=== PATIENT | female | born 1965 | race Caucasian/White ===

== ENCOUNTER 2022-10-02 13:10 | Outpatient (RCR) | payer BC, SELFPAY ==
[2022-10-02 13:54] LABS: Basophils Absolute Auto 0.02 K/uL (0.00-0.30); Basophils Percent Auto 0.4 % (0.0-3.0); Eosinophils Absolute Auto 0.04 K/uL (0.00-0.50); Eosinophils Percent Auto 0.9 % (0.0-7.0); Hematocrit 41.3 % (33.0-51.0); Hemoglobin* 13.5 gm/dL (12.0-16.0); Lymphocytes Absolute Auto 1.04 K/uL (0.90-2.90); Lymphocytes Percent Auto 22.2 % (20-44); Mean Corpuscular HGB Conc 33 gm/dL (32-36); Mean Corpuscular Hemoglobin 29 pg (26-34); Mean Corpuscular Volume 88 fL (80-100); Monocytes Percent Auto 7.3 % (0.0-11.0); Neutrophils Absolute Auto 3.24 K/uL (1.7-7.0); Neutrophils Percent Auto 69.2 % (42.0-72.0); Platelet Count* 191 K/uL (140-440); Red Blood Count 4.72 m/uL (4.00-5.20); White Blood Count* 4.68 K/uL (4.50-11.00)
[2022-10-02 13:56] LABS: Slide Review Reflex No
[2022-10-02 13:59] LABS: Aspartate Amino Transferase* 25 U/L (12-35)
[2022-10-05 09:15] LABS: Cholesterol* 110 mg/dL (90-199); HDL Cholesterol* 59 mg/dL (>=50); LDL Cholesterol Calculated 42 mg/dL (<100); Triglycerides* 43 mg/dL (40-149)
== END 2023-09-18 14:34 | disposition home or self-care (01) ==
LOC: LAB 13:10
DX: M33.10 Other dermatomyositis, organ involvement unspecified (principal)
CPT/HCPCS: 36415; 80061; 84450; 85025

== ENCOUNTER 2023-07-30 13:54 | Outpatient (REF) | payer BC, SELFPAY ==
[2023-07-30 14:32] LABS: Basophils Percent Auto 0.4 % (0.0-3.0); Eosinophils Percent Auto 2.2 % (0.0-7.0); Hematocrit 45.3 % (33.0-51.0); Hemoglobin* 14.4 gm/dL (12.0-16.0); Immature Granulocytes Pct Auto 0.2 %; Lymphocytes Percent Auto 15.1 % (20-44); Mean Corpuscular HGB Conc 32 gm/dL (32-36); Mean Corpuscular Hemoglobin 28 pg (26-34); Mean Corpuscular Volume 88 fL (80-100); Monocytes Percent Auto 6.7 % (0.0-11.0); Neutrophils Percent Auto 75.4 % (42.0-72.0); Platelet Count* 200 K/uL (140-440); RDW Coefficient of Variation % 13.9 % (11.5-15.5); Red Blood Count 5.13 m/uL (4.00-5.20); White Blood Count* 4.45 K/uL (4.50-11.00)
[2023-07-30 14:34] LABS: Alanine Aminotransferase* 21 U/L (4-35); Aspartate Amino Transferase* 26 U/L (12-35); Cholesterol* 126 mg/dL (90-199); HDL Cholesterol* 52 mg/dL (>=50); LDL Cholesterol Calculated 54 mg/dL (<100); Slide Review Reflex No; Triglycerides* 99 mg/dL (40-149)
[2023-07-30 14:40] LABS: Hemoglobin A1C* 5.6 % (0-5.6)
== END 2023-07-30 13:55 | disposition home or self-care (01) ==
LOC: NPINS 13:54
DX: M33.90 Dermatopolymyositis, unspecified, organ involvement unspecified (principal); R05.9 Cough, unspecified
CPT/HCPCS: 80061; 83036; 84450; 84460; 85025

== ENCOUNTER 2024-05-06 13:39 | Outpatient (REF) | payer BC, SELFPAY ==
--- OUTSIDE RECORDS SUMMARY | 2024-05-06 13:44 | XMS_ITS | Encounter Summary ---
Author Organization [facility] Address [address] [place] [address] Care Team Providers Care Mechanical Engineering Lecturer Name Role Phone Elsewhere, Pcp Primary Care Provider Unavailabl e Encounter Details Date Type Department Care Team (Late st Contact Info) Description 02/06/2024 Clinical Communication Division of Rheumatology in [place], [place] [address] [place] [phone] Eunice Ty M.D. [address] [place] [address] Social History Tobacco Use Types Packs/Day Years Used Date Smoking Tobacco: Never Smokeless Tobacco: Never Alcohol Use Standard Drinks/Week Comments Yes 1 (1 standard drink = 0.6 oz pur e alcohol) [facility] Utilities Answer Date Recorded In the past 12 months has [facility] [employer], gas, oil, or water dateIITians threatened to shut off services in your home? No 01/31/2024 Humiliation, Afraid, Rape, and Kick questionnair e Answer Date Recorded Within the last year, have y ou been afraid of your partner or ex-partner? No 01/30/2022 Within the last year, have y ou been humiliated or emotionally abused in other ways by your partner or ex-partner? No Within the last year, have y ou been kicked, hit, slapped, or otherwise physically hurt by your partner or ex-partner? No 01/30/2022 Within the last year, have y ou been raped or forced to have any kind of sexual activity by your partner or ex-partner? No 01/30/2022 Social Connection and Isolat ion Panel [NHANES] Answer Date Recorded In a typical week, how many times do you talk on the phone with family, friends, or neighbors? More than three times a week 01/30/2022 How often do you get togethe r with friends or relatives? Once a week 01/30/2022 How often do you attend chur or restoration services? More than 4 times per year 01/30/2022 Do you belong to any clubs o r organizations such as rastafarian groups, unions, fraternal or athletic groups, or school groups? No 01/30/2022 How often do you attend meet ings of the clubs or organizations you belong to? Patient declined 01/30/2022 Are you , , di vorced, , never , or living with a partner? 01/30/2022 AUDIT-C Answer Date Recorded Q1: How often do you have a drink containing alc ohol? Monthly or less 01/30/2022 Q2: How many drinks containi ng alcohol do you have on a typical day when you are drinking? 1 or 2 01/30/2022 Q3: How often do you have si x or more drinks on one occasion? Never 01/30/2022 Overall Financial Resource Strain (CARDIA) Answe r Date Recorded How hard is it for you to pa y for the very basics like food, housing, medical care, and heating? Not very hard 01/30/2022 [facility] - Occupational Stress Questionnaire Answer Date Recorded Do you feel stress - tense, restless, nervous, or anxious, or unable to sleep at night because your mind is troubled all the time - these days? To some extent 01/30/2022 Exercise Vital Sign Answer Date Recorde d On average, how many days pe r week do you engage in moderate to strenuous exercise (like a brisk walk)? 1 day 01/31/2024 On average, how many minutes do you engage in exercise at this level? 40 min 01/31/2024 Hunger Vital Sign Answer Date Recorded Within the past 12 months, y ou worried that your food would run out before you got the money to buy more. Never true 01/31/20 24 Within the past 12 months, t he food you bought just didn't last and you didn't have money to get more. Never true 01/31/2024 PRAPARE - Transportation Answer Date Re corded In the past 12 months, has l ack of transportation kept you from medical appointments or from getting medications? No 01/17 In the past 12 months, has l ack of transportation kept you from meetings, work, or from getting things needed for daily living? No 01/31/2024 Nutrition Answer Date Recorded On average, how many serving s of fruits and vegetables do you eat per day (serving size is equal to 1 cup or approximately the size of a tennis ball)? 0-2 01/31/2024 Dental Answer Date Recorded Dental: Regular Dentist Yes 01/31/20 Employment Answer Date Recorded Employment status Retired 01/31/2024 Housing Stability Answer Date Recorded What is your living situation today? I have a [facility] place to live 01/31/2024 Education Answer Date Recorded What is the highest level of school you have completed or the highest degree you have received? 12th grade 05/16/2019 Sex and Gender Information Value Date Recorded Sex Assigned at Female 01/19/2018 1:35 PM CDT Gender Identity Female 01/19/2018 1:35 PM CDT Sexual Orientation Straight 01/19/2018 1: 35 PM CDT documented as of this encounter Plan of Treatment Scheduled Orders Name Type Priority Associated Diagnoses Orde r Schedule CBC with Differential, Blood Lab Routine Dermatomyositis (HCC) Expected: 02/05/2025 (Approximate), Expires: 05/08/2025 Sedimentation Rate Lab Routine Dermatomyositis (HCC) Expected: 02/05/2025 (Approximate), Expires: 05/08/2025 CRP (C-Reactive Protein) Lab Routine Dermatomyositis (HCC) Expected: 02/05/2025 (Approximate), Expires: 05/08/2025 Creatinine with Estimated GFR Lab Routine Dermatomyositis (HCC) Expected: 02/05/2025 (Approximate), Expires: 05/08/2025 AST (Aspartate Aminotransferase) Lab Routine Dermatomyositis (HCC) Expected: 02/05/2025 (Approximate), Expires: 05/08/2025 Aldolase Lab Routine Dermatomyositis (HCC) Expected: 02/05/2025 (Approximate), Expires: 05/08/2025 CK (Creatine Kinase) Lab Routine Dermatomyositis (HCC) Expected: 02/05/2025 (Approximate), Expires: 05/08/2025 ALT (Alanine Aminotransferase) Lab Routine Dermatomyositis (HCC) Expected: 02/05/2025 (Approximate), Expires: 05/08/2025 documented as of this encounter Visit Diagnoses Diagnosis Dermatomyositis (HCC)- Primary documented in this encounter Care Teams Mechanical Engineering Lecturer Relationship Specialty Start Date End Date Elsewhere, Pcp PCP - General Family Medicine 03/14/18 documented as of this encounter
--- OUTSIDE RECORDS SUMMARY | 2024-05-06 13:44 | XMS_ITS | Encounter Summary ---
Author Organization [facility] Address [address] [place] [id number] Care Team Providers Care Forwarder Operator Name Role Phone Elsewhere, Pcp Primary Care Provider Unavailabl e Reason for Visit * Reason Onset Date Comments Lab Monitoring 02/21/2024 Collected 02/18/24 Encounter Details Date Type Department Care Team (Latest Contact Info) Description 02/21/2024 Clinical Communication Division of Rheumatology in [place], [place] [address] [place] [phone] Eunice Ty M.D. [address] [place] [phone] Lab Monitoring (Collected 02/18/24) Social History Tobacco Use Types Packs/Day Years Used Date Smoking Tobacco: Never Smokeless Tobacco: Never Alcohol Use Standard Drinks/Week Comments Yes 1 (1 standard drink = 0.6 oz pur e alcohol) [facility] Utilities Answer Date Recorded In the past 12 months has e [employer], gas, oil, or water [employer] threatened to shut off services in your [...] How often do you attend chur or adventism services? More than 4 times per year 01/30/2022 Do you belong to any clubs o r organizations such as denominational groups, unions, fraternal or athletic groups, or [...] care, and heating? Not very hard 01/30/2022 [facility] - Occupational Stress Questionnaire Answer Date [...] money to buy more. Never true 01/31/20 Within the past 12 months, t he [...] your living situation today? [facility] 01/31/2024 Education Answer Date Recorded What is the highest level of school you have completed or the highest degree you have received? 12th grade 05/16/2019 Sex and Gender Information Value Date Recorded Sex Assigned at Female 01/19/2018 1:35 PM CDT Gender Identity Female 01/19/2018 1:35 PM CDT Sexual Orientation Straight 01/19/2018 1: 35 PM CDT documented as of this encounter Miscellaneous Notes * Telephone Encounter - Teddy Abad RConcettaN. - 02/26/2024 4:46 PM CDT ASSESSMENT Rheumatology monitoring labs completed at an external lab on 02/18/24 were reviewed per Rheumatology division parameters. Labs reviewed: creatinine, CK, Aldolase Labs outside parameters: CK 221 External labs were entered into Labs Tab and sent for scanning. Labs Tab of Chart Review PLAN Provider notified of lab(s) outside of parameters, see 02/26/24 message for follow up. documented in this encounter Plan of Treatment Not on file documented as of this encounter Procedures Procedure Name Priority Date/Time Associated Diagnosis Comments ALDOLASE, S Routine 02/18/2024 CREATININE WITH EGFR, S/P Routine 02/18/2024 CREATINE KINASE (CK), S Routine 02/18/2024 documented in this encounter Results * Aldolase (02/18/2024) EXT Aldolase, S 5.0 7.7 [facility] Blood (Blood, Venous) Eunice Ty M.D. LAB BLOOD NON ADD-ON Performing Organization Address [facility] Co de Phone Number [facility] [address] [place] [address], [facility] [phone] * Creatinine with Estimated GFR (02/18/2024) EXT Estimated GFR (eGFR) 72 60 [facility] EXT Creatinine 0.92 0.4 - 1.0 mg/dL [facility] Blood (Blood, Venous) Eunice Ty M.D. LAB BLOOD ADD-ON Performing Organization Address [facility] de Phone Number [facility] [address] [place] [address], [facility] [phone] * (ABNORMAL) CK (Creatine Kinase) (02/18/2024) EXT Creatine Kinase 221(A) 33 - 157 [facility] Blood (Blood, Venous) Eunice Ty M.D. LAB BLOOD ADD-ON Performing Organization Address [facility] Co de Phone Number [facility] [address] [place] [address] [phone] documented in this encounter Visit Diagnoses Not on filedocumented in this encounter Care Teams Forwarder Operator Relationship Specialty Start Date End Date Elsewhere, Pcp PCP - General Family Medicine 03/14/18 documented as of this encounter
--- OUTSIDE RECORDS SUMMARY | 2024-05-06 13:44 | XMS_ITS ---
Author Organization [facility] Address [address] [place] [address] Care Team Providers Care Contracting Executive Name Role Phone Unavailable Unavailable Unavailable Surgery Details Not on file Complications Check Surgery Details section. Procedure Estimated Blood Loss Check Surgery Details section. Procedure Findings Check Surgery Details section. Procedure Specimens Taken Check Surgery Details section.
--- OUTSIDE RECORDS SUMMARY | 2024-05-06 13:44 | XMS_ITS | Encounter Summary ---
Author Organization [facility] Address [address] [place] [address] Care Team Providers Care Post Adoption Coordinator Name Role Phone Elsewhere, Pcp Primary Care Provider Unavailabl e Reason for Visit * Reason Onset Date Comments RX APPROVAL 02/13/2024 XELJANZ TAB 5MG APPROVAL Encounter Details Date Type Department Care Team (Latest Contact Info) Description 02/13/2024 Clinical Communication Pharmacy Prior [place] [phone] Michelle Carballo RX APPROVAL (XELJANZ TAB 5MG APPROVAL) Social History Tobacco Use Types Packs/Day Years Used Date Smoking Tobacco: Never Smokeless Tobacco: Never Alcohol Use Standard Drinks/Week Comments Yes 1 (1 standard drink = 0.6 oz pur e alcohol) [facility] Utilities Answer Date Recorded In the past [address] [facility] [employer], gas, oil, or water [employer] threatened to shut off services in your [...] How often do you attend chur or pentecostalism services? More than 4 times per year 01/30/2022 Do you belong to any clubs o r organizations such as moravian groups, unions, fraternal or athletic groups, or [...] care, and heating? Not very hard 01/30/2022 [facility] ional Health - Occupational Stress [...] your living situation today? I have a [facility] place to live 01/31/2024 Education Answer Date [...] encounter Miscellaneous Notes * Telephone Encounter - Michelle Carballo - 02/13/2024 8:10 AM EDT Pharmaceutical prior authorization has been approved for XELJANZ TAB 5MG APPROVAL If you have any follow-up questions, please send an [employer] message to P [facility]. documented in this encounter Plan of Treatment Not on file documented as of this encounter Visit Diagnoses Not on filedocumented in this encounter Care Teams Post Adoption Coordinator Relationship Specialty Start Date End Date Elsewhere, Pcp PCP - General Family Medicine 03/14/18 documented as of this encounter
--- OUTSIDE RECORDS SUMMARY | 2024-05-06 13:44 | XMS_ITS | Referral Summary ---
Author Organization [facility] Address [address] [place] [address]. [place] [address] Care Team Providers Care Furniture Detailer Name Role Phone No Ref-Primary, Physician Primary Care Provider Allergies Active Allergy Reactions Criticality Noted Date Comments Sumatriptan Unknown,Shortness Of Breath High 11/30/2011 Difficult breathing, chest tightness. Medications Medication Sig Dispensed Refills Start Date End Date Status ibuprofen (ADVIL/MOTRIN) 800 MG tablet as needed. 05/21/2019 Active atorvastatin (LIPITOR) 20 MG tablet 08/15/2020 Active amLODIPine (NORVASC) 2.5 MG tablet 07/23/2020 Active tofacitinib (XELJANZ) 5 MG tablet Take 5 mg by mouth 2 times daily Active bisacodyl (DULCOLAX) 5 MG EC tabletIndications:S pecial screening for malignant neoplasms, colon Take 2 tablets at 3 pm the day before your procedure. If your procedure is before 11 am, take 2 additional tablets at 8 pm. If your procedure is after 11 am, take 2 additional tablets at 6 am. For additional instructions refer to your colonoscopy prep instructions. 4 tablet 05/15/2022 Active polyethylene glycol (GOLYTELY) 236 g suspensionIndicatio ns:Special screening for malignant neoplasms, colon The night before the exam at 6 pm drink an 8-ounce glass every 15 minutes until the jug is half empty. If you arrive before 11 AM: Drink the other half of the Golytely jug at 11 PM night before procedure. If you arrive after 11 AM: Drink the other half of the Golytely jug at 6 AM day of procedure. For additional instructions refer to your colonoscopy prep instructions. 4000 mL 05/15/2022 Active metFORMIN (GLUCOPHAGE) 500 MG tabletIndications:T ype 2 Diabetes Mellitus Take 1,000 mg by mouth 2 times daily (with meals) Active losartan (COZAAR) 100 MG tablet Take 100 mg by mouth daily Active predniSONE (DELTASONE) 1 MG tablet Take 1 mg by mouth daily Taper dose: 1mg per day until 06/04/22 Active progesterone (PROMETRIUM) 200 MG capsule Take 200 mg by mouth daily Active estradiol (VIVELLE-DOT) 0.05 MG/24HR bi-weekly patch Place 1 patch onto the skin twice a week Active Active Problems Problem Noted Date Diagnosed Date Chronic pain of both shoulders 01/16/2023 Ureteral stone 09/05/2020 Overview: Added automatically from request for surgery [id number] Immunizations Name Administration Dates Next Due Zoster recombinant adjuvanted (SHINGRIX) 020,04/06/2020 Social History Tobacco Use Types Packs/Day Years Used Date Smoking Tobacco: Never Smokeless Tobacco: Never Tobacco Cessation:Counseling Given: Not Answered Alcohol Use Standard Drinks/Week Comments Yes 0 (1 standard drink = 0.6 oz pur e alcohol) once a month PHQ-2 Answer Date Recorded PHQ-2 Score 2 08/30/2020 Adolescent Education Answer Date Record ed Getting School Help Needed Not on file 05/11 Sex and Gender Information Value Date Recorded Sex Assigned at Not on file Gender Identity Not on file Sexual Orientation Not on file Last Filed Vital Signs Vital Sign Reading Time Taken Comments Blood Pressure 130/80 11/25/2023 12:19 AM CDT Pulse 75 11/25/2023 12:19 AM CDT Temperature 36.9 ??C (98.5 ??F) 11/24/2023 10:13 PM C DT Respiratory Rate 18 11/24/2023 11:32 PM CDT Oxygen Saturation 95% 11/25/2023 12:20 AM CDT Inhaled Oxygen Concentration - - Weight 77.1 kg (170 lb) 11/24/2023 10:13 PM CDT Height 162.6 cm (5' 4) 11/24/2023 10:13 PM CDT Body Mass Index 29.18 11/24/2023 10:13 PM CDT Plan of Treatment Not on file Procedures Procedure Name Priority Date/Time Associated Diagnosis Comments COMPREHENSIVE METABOLIC PANEL STAT 11/24/2023 10:32 PM CDT COLONOSCOPY Routine 05/31/2022 9:14 AM CDT from Last 3 Months or Most Recently Relevant to Health Maintenance Results * (ABNORMAL) Comprehensive metabolic panel (11/24/2023 10:32 PM CDT) [facility] Signature Sodium 139 135 - 145 mmol/L 11/24/2023 11:06 PM CDT [facility] Comment:Reference intervals for this test were updated on 05/14/2023 to more accurately reflect our healthy population. There may be differences in the flagging of prior results with similar values performed with this method. Interpretation of those prior results can be made in the context of the updated reference intervals. Potassium 3.5 3.4 - 5.3 mmol/L 11/24/2023 11:06 PM CDT [facility] Carbon Dioxide (CO2) 21(L) 22 - 29 mmol/L 11/24/2023 11:06 PM CDT [facility] Anion Gap 16(H) 7 - 15 mmol/L 11/24/2023 11:06 PM CDT [facility] Urea Nitrogen 10.6 6.0 - 20.0 mg/dL 11/24/2023 11:06 PM CDT [facility] Creatinine 0.78 0.51 - 0.95 mg/dL 11/24/2023 11:06 PM CDT [facility] GFR Estimate 88 >60 mL/min/1. 73m2 11/24/2023 11:06 PM CDT [facility] Calcium 9.6 8.6 - 10.0 mg/dL 11/24/2023 11:06 PM CDT [facility] Chloride 102 98 - 107 mmol/L 11/24/2023 11:06 PM CDT [facility] Glucose 164(H) 70 - 99 mg/dL 11/24/2023 11:06 PM CDT [facility] Alkaline Phosphatase 73 40 - 150 U/L 11/24/2023 11:06 PM CDT [facility] Comment:Reference intervals for this test were updated on 07/02/2023 to more accurately reflect our healthy population. There may be differences in the flagging of prior results with similar values performed with this method. Interpretation of those prior results can be made in the context of the updated reference intervals. AST 33 0 - 45 U/L 11/24/2023 11:06 PM CDT [facility] Comment:Reference intervals for this test were updated on 01/28/2023 to more accurately reflect our healthy population. There may be differences in the flagging of prior results with similar values performed with this method. Interpretation of those prior results can be made in the context of the updated reference intervals. ALT 35 0 - 50 U/L 11/24/2023 11:06 PM CDT [facility] Comment:Reference intervals for this test were updated on 01/28/2023 to more accurately reflect our healthy population. There may be differences in the flagging of prior results with similar values performed with this method. Interpretation of those prior results can be made in the context of the updated reference intervals. Protein Total 7.6 6.4 - 8.3 g/dL 11/24/2023 11:06 PM CDT [facility] Albumin 4.7 3.5 - 5.2 g/dL 11/24/2023 11:06 PM CDT [facility] Bilirubin Total 0.4 <=1.2 mg/dL 11/24/2023 11:06 PM CDT [facility] Blood BLOOD SPECIMEN / Unknown Venipuncture / Unknown 11/24/2023 10:32 PM CDT 11/24/2023 10:35 PM CDT Jalen Bernal MD LAB - BLOOD ORD ERABLES LABORATORY [facility] [address] [facility] (1st floor, no room number) [place] [address], [facility] * COLONOSCOPY (05/31/2022 9:14 AM CDT) [facility] Patient Name: Heather Montez ? Procedure Date: 05/31/2022 9:14 AM ? Date of : 1965 ? Admit Type: Outpatient Age: 57 ? Gender: Female Attending MD: PATRICK MASON MD ?? Total Sedation Time: 19_minutes continuous bedside 1:1 Instrument Name: 222 - Adult Colonoscope Procedure: ?Colonoscopy Indications: ?Screening for colorectal malignant neoplasm Providers: ?PATRICK MASON MD (Doctor) Referring MD: ? Yg Rowell (Referring MD) Medicines: ?Midazolam 4 mg IV, Fentanyl 150 micrograms IV Complications: ?No immediate complications. Procedure: ?Pre-Anesthesia Assessment: ?- Prior to the procedure, a History and Physical ?was performed, and patient medications and ?allergies were reviewed. The patient is competent. ?The risks and benefits of the procedure and the ?sedation options and risks were discussed with the ?patient. All questions were answered and informed ?consent was obtained. Patient identification and ?proposed procedure were verified by the physician ?in the procedure room. Mental Status Examination: ?alert and oriented. Airway Examination: normal ?oropharyngeal airway and neck mobility. Respiratory ?Examination: clear to auscultation. CV Examination: ?normal. Prophylactic Antibiotics: The patient does ?not require prophylactic antibiotics. Prior ?Anticoagulants: The patient has taken no ?anticoagulant or antiplatelet agents. After ?reviewing the risks and benefits, the patient was ?deemed in satisfactory condition to undergo the ?procedure. The anesthesia plan was to use moderate ?sedation / analgesia (conscious sedation). ?Immediately prior to administration of medications, ?the patient was re-assessed for adequacy to receive ?sedatives. The heart rate, respiratory rate, oxygen ?saturations, blood pressure, adequacy of pulmonary ?ventilation, and response to care were monitored ?throughout the procedure. The physical status of ?the patient was re-assessed after the procedure. ?After obtaining informed consent, the colonoscope ?was passed under direct vision. Throughout the ?procedure, the patient's blood pressure, pulse, and ?oxygen saturations were monitored continuously. The ?Olympus Adult Colonoscope, Model # CF-JA892S, ?[place] # 222, SN # [id number] was introduced through ?the anus and advanced to the cecum, identified by ?appendiceal orifice and ileocecal valve. The ?colonoscopy was performed without difficulty. The ?patient tolerated the procedure well. The quality ?of the bowel preparation was good. Anatomical ?landmarks were photographed. ? Findings: ? The perianal and digital rectal examinations were normal. ? The entire examined colon appeared normal on direct and retroflexion ? views. ? Impression: ? - The entire examined colon is normal on direct and ?retroflexion views. ?- No specimens collected. Recommendation: ? - Repeat colonoscopy in 10 years for screening ?purposes. ? Procedure Code(s): ? --- Professional --- ? G0121, Colorectal cancer screening; colonoscopy on individual not ? meeting criteria for high risk Diagnosis Code(s): ? --- Professional --- ? Z12.11, Encounter for screening for malignant neoplasm of colon CPT copyright 2020 [employer]. All rights reserved. The codes documented in this report are preliminary and upon gun stock checker review may be revised to meet current compliance requirements. Electronically signed by Patrick Mason MD __ PATRICK MASON MD 05/31/2022 9:55:11 AM I was physically present for the entire viewing portion of the exam. PATRICK MASON MD Number of Addenda: 0 Note Initiated On: 05/31/2022 9:14 AM MRN: ?[id number] Procedure Date: ? 05/31/2022 9:14:51 AM Scope Withdrawal Time: 0 hours 6 minutes 19 seconds Total Procedure Duration: 0 hours 16 minutes 58 seconds Estimated Blood Loss: ? Scope In: 9:30:42 AM Scope Out: 9:47:40 AM RADIOLOGY RESULTS 05/31/2022 9:14 AM CDT Yg Rowell YARD SUPERVISOR [employer] PROCEDURES RADIOLOGY RESULTS from Last 3 Months or Most Recently Relevant to Health Maintenance Care Teams Furniture Detailer Relationship Specialty Start Date End Date No Ref-Primary, Physician PCP - General 05/31/22
--- OUTSIDE RECORDS SUMMARY | 2024-05-06 13:44 | XMS_ITS | Clinical Summary ---
Author Organization [facility] Address [address] [place] [address]. [place] [address] Care Team Providers Care Allergy Specialist Name Role Phone No Ref-Primary, Physician Primary [...] Overview: Added automatically from request for surgery [id number] Immunizations Name Administration Dates Next Due Zoster recombinant adjuvanted (SHINGRIX) 020,04/06/2020 Family History Medical History Relation Comments Colon Cancer No family hx of Relation Status Comments Father Mother Alive Social History Tobacco Use Types Packs/Day Years [...] 11/24/2023 10:13 PM CDT Plan of Treatment Health Maintenance Due Date Last Done Comments CT COLONOGRAPHY 1965 FIT 1965 FLEX SIG 1965 LIPID 1965 sDNA (Cologuard) 1965 Pneumococcal Vaccine: Pediatrics (0 to 5 Years) and At-Risk Patients (6 to 64 Years) (1 of 2 - PCV) 1971 HIV SCREENING 02/24/1980 HEPATITIS C SCREENING 1983 HEPATITIS B IMMUNIZATION (1 of 3 - 19+ 3-dose series) 02/24/1984 DTAP/TDAP/TD IMMUNIZATION (1 - Tdap) 1990 ANNUAL REVIEW OF HM ORDERS 08/16/2021 08/16/2020 YEARLY PREVENTIVE VISIT 04/19/2023 04/19/2022, 04/17 PHQ-2 (once per calendar year) 2023 08/30/2020, 08/16/2020 MAMMO SCREENING 02/01/2024 01/31/2022, 01/17, 01/31/2022, Additional history exists PAP 04/17/2024 04/17/2021 COVID-19 Vaccine ( season) 2024 08/03/2021, 12/08/2020, 11/17/2020 INFLUENZA VACCINE (#1) 2024 0 (Declined), 06/04/2012, 06/04/2012, Additional history exists ADVANCE CARE PLANNING 08/16/2025 08/16/2020 (Decline d) GLUCOSE 11/23/2026 11/24/2023, 05/19, 08/16/2020, Additional history exists COLONOSCOPY 05/31/2032 05/31/2022, 05/31/2022 COLORECTAL CANCER SCREENING 05/31/2032 ZOSTER IMMUNIZATION Completed 06/06/2020, 0 HPV IMMUNIZATION Aged Out No longer e ligible based on patient's age to complete this topic MENINGITIS IMMUNIZATION Aged Out No l onger eligible based on patient's age to complete this topic RSV MONOCLONAL ANTIBODY Aged Out No l onger eligible based on patient's age to complete this topic Procedures Procedure Name Priority Date/Time Associated Diagnosis Comments COMPREHENSIVE METABOLIC PANEL STAT 11/24/2023 10:32 PM CDT COLONOSCOPY Routine 05/31/2022 9:14 AM CDT from Last 3 Months or Most Recently Relevant to Health Maintenance Results * (ABNORMAL) Comprehensive metabolic panel (11/24/2023 10:32 PM CDT) Sodium 139 135 - 145 mmol/L 11/24/2023 [...] Bernal MD LAB - BLOOD ORD ERABLES [facility] Acute Care Lab [address] [facility] (1st floor, no room number) [place] [address], [facility] * COLONOSCOPY (05/31/2022 9:14 AM CDT) [facility] COLONOSCOPY [facility] Patient Name: Heather Montez ? Procedure Date: [...] continuously. The ?Olympus Adult Colonoscope, Model # CF-WP542V, ?Endora # 222, SN # [id number] was introduced through ?the anus and advanced [...] malignant neoplasm of colon CPT copyright 2020 [employer]. All rights reserved. The codes documented in this report are preliminary and upon crop and soil scientist review may be revised to meet current compliance requirements. Electronically signed by Patrick Mason MD __ PATRICK MASON MD 05/31/2022 9:55:11 AM I was physically present for the entire viewing portion of the exam. PATRICK MASON MD Number of Addenda: 0 Note Initiated On: 05/31/2022 9:14 AM MRN: ?[id number] Procedure Date: ? 05/31/2022 9:14:51 AM Scope Withdrawal Time: 0 hours 6 minutes 19 seconds Total Procedure Duration: 0 hours 16 minutes 58 seconds Estimated Blood Loss: ? Scope In: 9:30:42 AM Scope Out: 9:47:40 AM RADIOLOGY RESULTS 05/31/2022 9:14 AM CDT [facility] PROCEDURES RADIOLOGY RESULTS from Last 3 Months or Most Recently Relevant to Health Maintenance Care Teams Allergy Specialist Relationship Specialty Start Date End Date No Ref-Primary, Physician PCP - General 05/31/22
--- OUTSIDE RECORDS SUMMARY | 2024-05-06 13:44 | XMS_ITS | Referral Summary ---
Author Organization [facility] Address [address] [place] [address] Care Team Providers Care Antique Finisher Name Role Phone Elsewhere, Pcp Primary Care Provider Unavailabl e Source Comments Patient records contain information from all sites at [facility]. For routine questions regarding patient records, call [phone] during business hours, M-F 8:00 AM - 5:00 PM Central Time. Record requests for emergency care only can be directed to [phone] at any time.[facility] Encounters Date Type Department Care Team Description 04/29/2024 Refill Division of Rheumatology in [place], [place] [address] [place] [phone] Eunice Ty M.D. Med Refill 02/27/2024 Clinical Communication Division of Rheumatology in [place], [place] [address] [place] [phone] Eunice Ty M.D. 02/21/2024 Clinical Communication Division of Rheumatology in [place], [place] [address] [place] [phone] Eunice Ty M.D. Lab Monitoring (Collected 02/18/24) 02/13/2024 Clinical Communication Pharmacy Prior Auth [place] [phone] Michelle Carballo RX APPROVAL (XELJANZ TAB 5MG APPROVAL) 02/06/2024 Clinical Communication Division of Rheumatology in [place], [place] [address] [place] [phone] Eunice Ty M.D. 02/06/2024 10:25 AM CDT - 02/06/2024 12:44 PM CDT Hospital Encounter Department of Laboratory Medicine and Pathology, [facility], in [place], [place] [address] [place] [address] Eunice Ty M.D. Sore Throat; Dermatomyositis (HCC) Discharge Disposition: Home or Self Care 02/06/2024 12:45 PM CDT - 02/06/2024 11:59 PM CDT Hospital Encounter Department of Radiology in [place], [place] [address] [place] [address] Eunice Ty M.D. Dermatomyositis (HCC) Discharge Disposition: Home or Self Care 02/06/2024 12:30 PM CDT Office Visit Division of Rheumatology in [place], [place] [address] [place] [address] Eunice Ty M.D. Dermatomyositis (HCC) (Primary Dx) 02/04/2024 Clinical Communication Division of Rheumatology in [place], [place] [address] [place] [address] Eunice Ty M.D. from Last 3 Months Allergies Active Allergy Reactions Criticality Noted Date Comments Sumatriptan Other (see comments) 11/30/2011 Difficult breathing, chest tightness. Medications Medication Sig Dispensed Refills Start Date End Date Status losartan-hydroCH LOROthiazide (HYZAAR) 100-12.5 mg per tablet daily. 3 11/14/2018 Active norethindrone (AYGESTIN) 5 mg tablet TK 1 T PO D 3 03/19/2019 Active atorvastatin (LIPITOR) 20 mg tablet daily. 12/20/2020 Active ibuprofen 800 mg tablet TAKE 1 TABLET BY MOUTH EVERY 8 HOURS WITH FOOD OR MILK NEEDED 01/14/2024 Active progesterone (Prometrium) 200 mg capsule Take 200 mg by mouth at bedtime. Active Mounjaro 15 mg/0.5 mL pen injector injection See Instructions, ADMINISTER 15 MG UNDER THE SKIN EVERY WEEK. ROTATE INJECTION SITES., # 2 mL, 10 Refill(s), Pharmacy: [id number], will warp picker soon., ADMINISTER 15 MG UNDER THE SKIN EVERY WEEK. ROTATE INJECTION SITES., 164, cm, 02/06... 08/21/2023 Active amLODIPine (Norvasc) 5 mg tablet Take 5 mg by mouth daily. Active estradioL (Vivelle-Dot) 0.05 mg/[address] 1 patch on the skin 2 (two) times a day. Active Xeljanz 5 mg tabletIndication s:Dermatomyositi s (HCC) TAKE 1 TABLET BY MOUTH TWICE DAILY 60 tablet 05/01/2024 Active tofacitinib (Xeljanz) 5 mg tabletIndication s:Dermatomyositi s (HCC) TAKE 1 TABLET BY MOUTH TWICE DAILY 180 tablet 02/04/2024 4 Discontinued Active Problems Problem Noted Date Diagnosed Date Dermatomyositis 05/04/2005 Tendinitis Achilles Left Tendinitis Achilles Right Immunizations Name Administration Dates Next Due Influenza, Seasonal, Injectable 06/04/2012,06/27,05/30/2011 RZV (SHINGRIX) 06/06/2020,04/06/2020 Social History Tobacco Use Types Packs/Day Years Used Date Smoking Tobacco: Never Smokeless Tobacco: Never Tobacco Cessation:Counseling Given: Not Answered Alcohol Use Standard Drinks/Week Comments Yes 1 (1 standard drink = 0.6 oz pur e alcohol) [facility] Utilities Answer Date Recorded In the past 12 months has e [employer], gas, oil, or water [employer] threatened to shut off services in your [...] How often do you attend chur or judaism services? More than 4 times per year 01/30/2022 Do you belong to any clubs o r organizations such as oriental orthodox groups, unions, fraternal or athletic groups, or [...] care, and heating? Not very hard 01/30/2022 [facility] of Occupat ional Health - Occupational Stress [...] your living situation today? I have a [facility] place to live 01/31/2024 Education Answer Date Recorded What is the highest level of school you have completed or the highest degree you have received? 12th grade 05/16/2019 Sex and Gender Information Value Date Recorded Sex Assigned at Female 01/19/2018 1:35 PM CDT Gender Identity Female 01/19/2018 1:35 PM CDT Sexual Orientation Straight 01/19/2018 1: 35 PM CDT Last Filed Vital Signs Vital Sign Reading Time Taken Comments Blood Pressure 143/87 02/06/2024 12:06 PM CDT Pulse 81 02/06/2024 12:06 PM CDT Temperature 36.9 ??C (98.4 ??F) 02/06/2024 12:06 PM C DT Respiratory Rate - - Oxygen Saturation - - Inhaled Oxygen Concentration - - Weight 81.4 kg (179 lb 5.5 oz) 02/06/2024 12:06 PM CDT Height 162.6 cm (5' 4) 02/06/2024 12:06 PM CDT Body Mass Index 30.78 02/06/2024 12:06 PM CDT Plan of Treatment Not on file Procedures Procedure Name Priority Date/Time Associated Diagnosis Comments ALDOLASE, S Routine 02/18/2024 CREATININE WITH EGFR, S/P Routine 02/18/2024 CREATINE KINASE (CK), S Routine 02/18/2024 BI BREAST SCREENING BILATERAL WITH TOMOSYNTHESIS RAD - Routine (most inpatients and all outpatients) 02/06/2024 1:21 PM CDT Dermatomyositis (HCC) QUANTITATIVE M-PROTEIN STUDY, S Routine 02/06/2024 10:44 AM CDT ALDOLASE, S Routine 02/06/2024 10:44 AM CDT Dermatomyositis (HCC) CREATININE WITH EGFR, S/P Routine 02/06/2024 10:44 AM CDT Dermatomyositis (HCC) CREATINE KINASE (CK), S Routine 02/06/2024 10:44 AM CDT Dermatomyositis (HCC) C-REACTIVE PROTEIN (CRP), S/P Routine 02/06/2024 10:44 AM CDT Dermatomyositis (HCC) SEDIMENTATION RATE, B Routine 02/06/2024 10:44 AM CDT Dermatomyositis (HCC) CBC WITH DIFFERENTIAL, B Routine 02/06/2024 10:44 AM CDT Dermatomyositis (HCC) ASPARTATE AMINOTRANSFERASE (AST), S/P Routine 02/06/2024 10:44 AM CDT Dermatomyositis (HCC) ALANINE AMINOTRANSFERASE (ALT), S/P Routine 02/06/2024 10:44 AM CDT Dermatomyositis (HCC) LIPID PANEL, NON-FASTING, S Routine 07/30/2023 POTASSIUM, S/P Routine 06/27/2020 HIV-1/-2 AG AND AB SCREEN, PLASMA Routine 12/19/2018 10:00 AM CDT Dermatomyositis (HCC) from Last 3 Months or Most Recently Relevant to Health Maintenance Results * Aldolase (02/18/2024) Only the most recent of2 resultswithin the time period is included. EXT Aldolase, S 5.0 7.7 [facility] Blood (Blood, Venous) Eunice Ty M.D. LAB BLOOD NON ADD-ON Performing Organization Address [facility] de Phone Number [facility] [address] [place] [address], [facility] [phone] * Creatinine with Estimated GFR (02/18/2024) Only the most recent of2 resultswithin the time period is included. EXT Estimated GFR (eGFR) 72 60 [facility] EXT Creatinine 0.92 0.4 - 1.0 mg/dL [facility] Blood (Blood, Venous) Eunice Ty M.D. LAB BLOOD ADD-ON Performing Organization Address [facility] de Phone Number [facility] [address] [place] [address], [facility] [phone] * (ABNORMAL) CK (Creatine Kinase) (02/18/2024) Only the most recent of2 resultswithin the time period is included. EXT Creatine Kinase 221(A) 33 - 157 [facility] Blood (Blood, Venous) Eunice Ty M.D. LAB BLOOD ADD-ON Performing Organization Address [facility] de Phone Number [facility] [address] [place] [address], [facility] [phone] * BI Breast Screening Bilateral with Tomosynthesis (02/06/2024 1:21 PM CDT) Anatomical Region Laterality Modality Breast, Breast Imaging RST L OS, Breast Imaging ARZ LOS, Breast Imaging FLA LOS Bilateral Mammography Impressions 02/06/2024 1:47 PM CDT Negative. RECOMMENDATION: ??Annual Screening Mammogram ASSESSMENT: ??BI-RADS: 1: Negative. Narrative 02/06/2024 1:47 PM CDT EXAM: ??BI BREAST SCREENING BILATERAL WITH TOMOSYNTHESIS Current study was evaluated with a Computer Aided Detection (CAD) system. INDICATION: ??Screening mammogram. COMPARISON: ??Prior exam(s) were available and reviewed for comparison. DENSITY: ??b. There are scattered areas of fibroglandular density. FINDINGS: ??No findings of malignancy. ??No significant change since prior exam. Procedure Note Pat Patino M.D. - 02/06/2024 EXAM: BI BREAST SCREENING BILATERAL WITH TOMOSYNTHESIS Current study was evaluated with a Computer Aided Detection (CAD) system. INDICATION: Screening mammogram. COMPARISON: Prior exam(s) were available and reviewed for comparison. DENSITY: b. There are scattered areas of fibroglandular density. FINDINGS: No findings of malignancy. No significant change since priorexam. IMPRESSION: Negative. RECOMMENDATION: Annual Screening Mammogram ASSESSMENT: BI-RADS: 1: Negative. Eunice Ty M.D. [facility] BI PROCEDURES * Quantitative M-protein Study (02/06/2024 10:44 AM CDT) Immunoglobulin A (IgA), S 206 61 - 356 mg/dL 02/06/2024 4:42 PM CDT [facility] Immunoglobulin M (IgM), S 38 37 - 286 mg/dL 02/06/2024 4:42 PM CDT [facility] Immunoglobulin G (IgG), S 1120 767 - 1590 mg/dL 02/06/2024 4:41 PM CDT [facility] Therapeutic Antibody Administered? Unspecified 02/06/2024 2:55 PM CDT [facility] Flag, M-protein Isotype Negative Negative 02/10/2024 8:18 AM CDT [facility] QMPTS Interpretation No monoclonal protein detected. 02/10/2024 8:18 AM CDT [facility] Comment: ----ADDITIONAL INFORMATION---- The submitted sample was assayed by five separate immunopurifications for IgG, IgA, IgM, kappa and lambda. ??The result reflects the findings of either no monoclonal protein detected or those monoclonal immunoglobulins that were detected. This test was developed and its performance characteristics determined by [facility] in a manner consistent with CLIA requirements. This test has not been cleared or approved by the U.S. Food and Drug Administration. Blood 02/06/2024 10:4 4 AM CDT 02/06/2024 2:55 PM CDT Narrative [facility] - 02/10/2024 8:18 AM CDT Specimen Information: Specimen ID: [id number] Specimen Type: Blood Specimen Collection Start Date: 02/06/2024 10:44 AM Specimen Received Date: 02/06/2024 ??2:55 PM Specimen ID: [id number] Specimen Type: Blood Specimen Collection Start Date: 02/06/2024 10:44 AM Specimen Received Date: 02/06/2024 ??3:02 PM Eunice Ty M.D. LAB BLOOD ADD-ON Performing Organization Address City/[facility]/ZIP Co de Phone Number [facility] [address] [place] [address] [facility] [address] [place] [address] [place] [facility] [place] [address] * Sedimentation Rate (02/06/2024 10:44 AM CDT) Sedimentation Rate, B 2 2 - 22 mm/h 02/06/2024 12:08 PM CDT [facility] Blood (Blood, Venous) 02/06/2024 10:44 AM CDT 02/06/2024 11:08 AM CDT Eunice Ty M.D. LAB BLOOD ADD-ON [facility] [address] [place] [address], [place] DTL [facility] [address] [place] [address] * CBC with Differential, Blood (02/06/2024 10:44 AM CDT) Hemoglobin 13.9 11.6 - 15.0 g/dL 02/06/2024 11:20 AM CDT DTL Hematocrit 42.0 35.5 - 44.9 % 02/06/2024 11:20 AM CDT DTL Erythrocytes 4.84 3.92 - 5.13 x10(12)/L 02/06/2024 11:20 AM CDT DTL MCV 86.8 78.2 - 97.9 fL 02/06/2024 11:20 AM CDT DTL RBC Distrib Width 14.6 12.2 - 16.1 % 02/06/2024 11:20 AM CDT DTL Platelet Count 228 157 - 371 x10(9)/L 02/06/2024 11:20 AM CDT DTL Leukocytes 5.1 3.4 - 9.6 x10(9)/L 02/06/2024 11:20 AM CDT DTL Neutrophils 3.74 1.56 - 6.45 x10(9)/L 02/06/2024 11:20 AM CDT PM Lymphocytes 0.98 0.95 - 3.07 x10(9)/L 02/06/2024 11:20 AM CDT DTL Monocytes 0.33 0.26 - 0.81 x10(9)/L 02/06/2024 11:20 AM CDT DTL Eosinophils 0.05 0.03 - 0.48 x10(9)/L 02/06/2024 11:20 AM CDT DTL Basophils <0.03 0.01 - 0.08 x10(9)/L 02/06/2024 11:20 AM CDT DTL Blood (Blood, Venous) 02/06/2024 10:44 AM CDT 02/06/2024 11:08 AM CDT Eunice Ty M.D. LAB BLOOD ADD-ON [facility] [address] [place] [address], [facility] [address] [place] [address] [facility] [address] [place] [address] * CRP (C-Reactive Protein) (02/06/2024 10:44 AM CDT) C-Reactive Protein (CRP), S <3.0 <5.0 mg/L 02/06/2024 11:44 AM CDT [facility]TL Blood (Blood, Venous) 02/06/2024 10:44 AM CDT 02/06/2024 11:24 AM CDT Eunice Ty M.D. LAB BLOOD ADD-ON [facility] [address] [place], [place] [phone] [place] [address] 200 [place] [address] * ALT (Alanine Aminotransferase) (02/06/2024 10:44 AM CDT) Alanine Aminotransferase (ALT), S 20 7 - 45 U/L 02/06/2024 11:44 AM CDT DTL Blood (Blood, Venous) 02/06/2024 10:44 AM CDT 02/06/2024 11:24 AM CDT Eunice Ty M.D. LAB BLOOD ADD-ON [facility] [address] [place], [place] [phone] [place] [address] 200 [place] [address] * AST (Aspartate Aminotransferase) (02/06/2024 10:44 AM CDT) Aspartate Aminotransferase (AST), S 23 8 - 43 U/L 02/06/2024 11:44 AM CDT DTL Blood (Blood, Venous) 02/06/2024 10:44 AM CDT 02/06/2024 11:24 AM CDT Eunice Ty M.D. LAB BLOOD ADD-ON [facility] [address] [place] [address], [facility] DTL [facility] [address] [place] [address] * Lipid Panel, NON-FASTING (07/30/2023) EXT Cholesterol, Total, S 126 90 - 199 [facility] EXT Triglycerides, S 99 40 - 149 [facility] EXT Cholesterol, HDL, S [address] [facility] EXT Cholesterol, LDL [address] [facility] Blood (Blood, Venous) Eunice Ty M.D. LAB BLOOD ADD-ON Performing Organization Address City/[facility]/ZIP Co de Phone Number [facility] [address] [id number], [facility] [phone] * (ABNORMAL) Potassium (06/27/2020) Pathologist [facility] EXT Potassium 3.2(A) 3.4 - 5.1 Blood (Blood, Venous) Narrative Resulting Agency Comment [facility] Asif Stoner M.D. LAB BLOOD ADD-ON * HIV-1/-2 Ag and Ab Screen, Plasma (12/19/2018 10:00 AM CDT) HIV-1/-2 Ag and Ab Screen, P Negative Negative 12/19/2018 2:12 PM CDT [facility] Comment: Negative result does not rule out HIV infection. If exposure to HIV infection occurred <14 days ago, contact the laboratory to request addition of HIV-1 RNA detection / quantification test (HIVQN). Blood (Blood, Venous) 12/19/2018 10:00 AM CDT 12/19/2018 1:28 PM CDT Sukumar Hamm M.D. LAB MICROBIOLOGY - B LOOD ORDERABLES [facility] [address] [place] [address] from Last 3 Months or Most Recently Relevant to Health Maintenance Care Teams Antique Finisher Relationship Specialty Start Date End Date Elsewhere, Pcp PCP - General Family Medicine 03/14/18
--- OUTSIDE RECORDS SUMMARY | 2024-05-06 13:44 | XMS_ITS | Encounter Summary ---
Author Organization [facility] Address [address] [place] [address] Care Team Providers Care Mammographer Name Role Phone Elsewhere, Pcp Primary Care Provider Unavailabl e Encounter Details Date Type Department Care Team (Late st Contact Info) Description 02/27/2024 Clinical Communication Division of Rheumatology in [place], [place] [address] [place] [phone] Eunice Ty M.D. [address] [place] [address] Social History Tobacco Use Types Packs/Day Years Used Date Smoking Tobacco: Never Smokeless Tobacco: Never Alcohol Use Standard Drinks/Week Comments Yes 1 (1 standard drink = 0.6 oz pur e alcohol) [facility] Utilities Answer Date Recorded In the past 12 months has [facility] [employer], gas, oil, or water [employer] threatened to shut off services in your [...] How often do you attend chur or anabaptist services? More than 4 times per year 01/30/2022 Do you belong to any clubs o r organizations such as advent groups, unions, fraternal or athletic groups, or [...] care, and heating? Not very hard 01/30/2022 [facility] of Occupat ionsc Health - Occupational Stress Questionnaire Answer Date [...] your living situation today? I have a [facility] place to live 01/31/2024 Education Answer [...] as of this encounter Plan of Treatment Not on file documented as of this encounter Visit Diagnoses Not on filedocumented in this encounter Care Teams Mammographer Relationship Specialty Start Date End Date Elsewhere, Pcp PCP - General Family Medicine 03/14/18 documented as of this encounter
--- OUTSIDE RECORDS SUMMARY | 2024-05-06 13:44 | XMS_ITS | Encounter Summary ---
Author Organization [facility] Address [address] [place] [address] Care Team Providers Care Crane Helper Name Role Phone Elsewhere, Pcp Primary Care Provider Unavailabl e Reason for Visit * Reason Comments Med Refill Encounter Details Date Type Department Care Team (Late st Contact Info) Description 04/29/2024 Refill Division of Rheumatology in [place], [place] [address] [place] [phone] Eunice Ty M.D. [address] [place] [address] Med Refill Social History Tobacco Use Types Packs/Day Years Used Date Smoking Tobacco: Never Smokeless Tobacco: Never Alcohol Use Standard Drinks/Week Comments Yes 1 (1 standard drink = 0.6 oz pur e alcohol) [facility] Utilities Answer Date Recorded In the past 12 months has [facility] [employer], [employer], oil, or water [employer] threatened to shut off services in your [...] week 01/30/2022 How often do you attend [facility] or gnosticist services? More than 4 times per year 01/30/2022 Do you belong to any clubs o r organizations such as scientology groups, unions, fraternal or athletic groups, or [...] care, and heating? Not very hard 01/30/2022 [facility] of Occupat ional Health - Occupational Stress [...] your living situation today? I have a [facility] place to live 01/31/2024 Education Answer [...] encounter Miscellaneous Notes * Telephone Encounter - Kelly Pimentel, R.N. - 05/01/2024 3:26 PM CDT Prescription renewal request for tofacitinib (Xeljanz) received from pharmacy. HISTORY OF PRESENT ILLNESS Last Rheum / VASC visit: 02/06/24 with Eunice Ty MD Future office visit: ordered, not yet scheduled Last monitoring labs: CBC with differential, AST, & ALT on 02/06/24 lipids on 07/30/23 : resultswithin parameters Prescription request matches current plan of care. Prescription request matches a current prescription in the Medication List. Exclusion criteria: None (If an alert appeared, it was determined to be an approved exception) ASSESSMENT/PLAN Prescription request pended for provider review due to missing monitoring labs. 30 day supply pended.Due for lipid draw. documented in this encounter Plan of Treatment Not on file documented as of this encounter Visit Diagnoses Diagnosis Dermatomyositis (HCC) documented in this encounter Care Teams Crane Helper Relationship Specialty Start Date End Date Elsewhere, Pcp PCP - General Family Medicine 03/14/18 documented as of this encounter
--- OUTSIDE RECORDS SUMMARY | 2024-05-06 13:44 | XMS_ITS | Encounter Summary ---
Author Organization [facility] Address [facility] [place] [address] Care Team Providers Care Sourcing Specialist Name Role Phone Cindy Nelson MD Unavailable Td Phillip MD Unavailable [phone] No Ref-Primary, Physician Primary Care Provider Cindy Nelson MD Unavailable Encounter Details Date Type Department Care Team (Late st Contact Info) Description 09/15/2020 MyC Medical Advice [facility] [place] [phone] [facility] [address] [place] [address] Nayeli Hays, AUTOMOTIVE SERVICE MANAGER Social History Tobacco Use Types Packs/Day Years Used Date Smoking Tobacco: Never Smokeless Tobacco: Never Alcohol Use Standard Drinks/Week Comments Yes 0 (1 standard drink = 0.6 oz pur e alcohol) PHQ-2 Answer Date Recorded PHQ-2 Score 2 08/30/2020 Sex and Gender Information Value Date Recorded Sex Assigned at Not on file Gender Identity Not on file Sexual Orientation Not on file COVID-19 Exposure Response Date Recorded In the last month, have you been in contact with someone who was confirmed or suspected to have Coronavirus / COVID-19? No / Unsure 08/16/2020 8:52 AM WEB APPLICATIONS DEVELOPER documented as of this encounter Plan of Treatment Not on file documented as of this encounter Visit Diagnoses Not on filedocumented in this encounter Care Teams Sourcing Specialist Relationship Specialty Start Date End Date No Ref-Primary, Physician PCP - General 05/31/22 [place] [id number] [address] [id number] Assigned PCP 07/21/20 08/03/22 Td Phillip MD [address] [place] [place] [address] [address] [address] Assigned Surgical Provider 08/21/20 [place] [id number] [address] [id number] Assigned PCP 10/13/22 08/16/23 documented as of this encounter
--- OUTSIDE RECORDS SUMMARY | 2024-05-06 13:44 | XMS_ITS | Clinical Summary ---
Author Organization [facility] Address [address] [place] [address] Care Team Providers Care Tele Rn Name Role Phone Elsewhere, Pcp Primary Care Provider Unavailabl e Source Comments Patient records contain information from all sites at [facility]. For routine questions regarding patient records, call [phone] during business hours, M-F 8:00 AM - 5:00 PM Central Time. Record requests for emergency care only can be directed to [phone] at any time.[facility] Allergies Active Allergy Reactions Criticality Noted Date [...] SITES., # 2 mL, 10 Refill(s), [id number], will curing pickling packer soon., ADMINISTER 15 MG UNDER THE SKIN [...] 05/04/2005 Tendinitis Achilles Left Tendinitis Achilles Right Encounters Date Type Department Care Team Description 04/29/2024 Refill Division of Rheumatology in [address] [phone] Eunice Ty M.D. Med Refill 02/27/2024 Clinical Communication Division of Rheumatology in [place], [place] [address] [place] [phone] Eunice Ty M.D. 02/21/2024 Clinical Communication Division of Rheumatology in [address] [phone] Eunice Ty M.D. Lab Monitoring (Collected 02/18/24) 02/13/2024 Clinical Communication Pharmacy Prior Auth [place] [phone] Michelle Carballo RX APPROVAL (XELJANZ TAB 5MG APPROVAL) 02/06/2024 12:45 PM CDT - 02/06/2024 11:59 PM CDT Hospital Encounter Department of Radiology in [place], [place] [address] [place] [phone] Eunice Ty M.D. Dermatomyositis (HCC) Discharge Disposition: Home or Self Care 02/06/2024 12:30 PM CDT Office Visit Division of Rheumatology in [place], [place] [address] [place] [phone] Eunice Ty M.D. Dermatomyositis (HCC) (Primary Dx) 02/06/2024 10:25 AM CDT - 02/06/2024 12:44 PM CDT Hospital Encounter Department of Laboratory Medicine and Pathology, [facility], in [place], [place] [address] [place] [address] Eunice Ty M.D. Sore Throat; Dermatomyositis (HCC) Discharge Disposition: Home or Self Care 02/06/2024 Clinical Communication Division of Rheumatology in [place], [place] [address] [place] [address] Eunice Ty M.D. 02/04/2024 Clinical Communication Division of Rheumatology in [place], [place] [address] [place] [address] Eunice Ty M.D. from Last 3 Months Immunizations Name Administration Dates Next Due Influenza, Seasonal, Injectable 06/04/2012,06/27,05/30/2011 RZV (SHINGRIX) 06/06/2020,04/06/2020 Family History Medical History Relation Name Comments Hypertension Father Ean Lung cancer Father Ean 88 yrs old Skin cancer Father Ean Last 20 years Hypertension Mother Clara Relation Name Status Comments Father Ean Mother Clara Social History Tobacco Use Types Packs/Day Years Used Date Smoking Tobacco: Never Smokeless Tobacco: Never Tobacco Cessation:Counseling Given: Not Answered Alcohol Use Standard Drinks/Week Comments Yes 1 (1 standard drink = 0.6 oz pur e alcohol) [facility] Utilities Answer Date Recorded In the past 12 months has e [employer], gas, oil, or water [employer] threatened to shut off services in your [...] 01/30/2022 How often do you attend chur ch or pentecostal services? More than 4 times per year 01/30/2022 Do you belong to any clubs o r organizations such as baptist groups, unions, fraternal or athletic groups, or [...] care, and heating? Not very hard 01/30/2022 [facility] of Occupat ional Health - Occupational [...] your living situation today? I have a [employer] place to live 01/31/2024 Education Answer Date [...] 02/06/2024 12:06 PM CDT Plan of Treatment Health Maintenance Due Date Last Done Comments CT Colonography 1965 Cervical Cancer Screening 1965 Cologuard 1965 FIT 1965 Pneumococcal vaccine (0-64 years) (1 of 2 - PCV) 1971 DTaP,Tdap,and Td Vaccines (1 - Tdap) 02/24/1984 Hepatitis B Vaccines (1 of 3 - 19+ 3-dose series) 02/24/1984 Depression Screening (Annual PHQ-2) 08/19/2023 COVID-19 Vaccine (2022-24 season) 2024 08/03/2021, 12/08/2020, 12/06/2020, Additional history exists Office Visit for Blood Pressure Check / Re-check 05/08/2024 02/06/2024 Influenza Vaccine (#1) 2024 2, 06/27/2011, 05/30/2011 Potassium Level 11/23/2024 11/24/2023, 07/20, 08/06/2020, Additional history exists Sodium Level 11/23/2024 11/24/2023, 07/20, 08/06/2020 Mammogram 02/05/2025 02/06/2024, 01/17, 01/31/2022, Additional history exists Creatinine Level (Kidney Function Test) 02/17/2025 02/18/2024, 02/06/2024, 11/24/2023, Additional history exists Fasting Glucose for Diabetes Screening 11/23/2026 11/24/2023, 08/16/2020, 08/06/2020 Lipid (Cholesterol) Screening 07/30/2028 07/30/2023, 10/05/2022, 10/02/2022, Additional history exists Colonoscopy 05/31/2032 05/31/2022 Colorectal Cancer Screening 05/31/2032 HIV Screening Completed 12/19/2018 Zoster Vaccines Completed 06/06/2020, 04/06/2020 HPV Vaccines Aged Out No longer eligi ble based on patient's age to complete this [...] is included. EXT Aldolase, S 5.0 7.7 [facility] Blood (Blood, Venous) Eunice Ty M.D. LAB BLOOD NON ADD-ON Performing Organization Address [facility] de Phone Number [facility] [address] [place] [address], [facility] [phone] * Creatinine with Estimated GFR (02/18/2024) Only the most recent of2 resultswithin the time period is included. EXT Estimated GFR (eGFR) 72 60 [facility] EXT Creatinine 0.92 0.4 - 1.0 mg/dL [facility] Blood (Blood, Venous) Eunice Ty M.D. LAB BLOOD ADD-ON Performing Organization Address [facility] de Phone Number [facility] [address] [place] [address], [facility] [phone] * (ABNORMAL) CK (Creatine Kinase) (02/18/2024) Only the most recent of2 resultswithin the time period is included. EXT Creatine Kinase 221(A) 33 - 157 [facility] Blood (Blood, Venous) Eunice Ty M.D. LAB BLOOD ADD-ON Performing Organization Address [facility] de Phone Number [facility] [address] [place] [address], [facility] [phone] * BI Breast Screening Bilateral with Tomosynthesis [...] ASSESSMENT: BI-RADS: 1: Negative. Eunice Ty M.D. [facility] PROCEDURES * Quantitative M-protein Study (02/06/2024 10:44 [...] developed and its performance characteristics determined by [facility] in a manner consistent with CLIA requirements. This test has not been cleared or approved by the U.S. Food and Drug Administration. Blood 02/06/2024 10:4 4 AM CDT 02/06/2024 2:55 PM CDT Narrative [facility] - 02/10/2024 8:18 AM CDT Specimen Information: Specimen ID: [id number] Specimen Type: Blood Specimen Collection Start Date: 02/06/2024 10:44 AM Specimen Received Date: 02/06/2024 ??2:55 PM Specimen ID: [id number] Specimen Type: Blood Specimen Collection Start Date: 02/06/2024 10:44 AM Specimen Received Date: 02/06/2024 ??3:02 PM Eunice Ty M.D. LAB BLOOD ADD-ON Performing Organization Address City/[facility]/ZIP Co de Phone Number [facility] [address] [place] [address] [facility] [address] [place] [address] [place] [facility] [place] [address] * Sedimentation Rate (02/06/2024 10:44 AM CDT) Sedimentation Rate, B 2 2 - 22 mm/h 02/06/2024 12:08 PM CDT DTL Blood (Blood, Venous) 02/06/2024 10:44 AM CDT 02/06/2024 11:08 AM CDT Eunice Ty M.D. LAB BLOOD ADD-ON Performing Organization Address City/[facility]/ZIP Co de Phone Number [facility] [address] [place] [address], [facility] DTL [facility] [address] [place] [address] * CBC with Differential, Blood (02/06/2024 10:44 [...] - 6.45 x10(9)/L 02/06/2024 11:20 AM CDT [facility] Lymphocytes 0.98 0.95 - 3.07 x10(9)/L 02/06/2024 11:20 AM CDT DTL Monocytes 0.33 0.26 - 0.81 x10(9)/L 02/06/2024 11:20 AM CDT DTL Eosinophils 0.05 0.03 - 0.48 x10(9)/L 02/06/2024 11:20 AM CDT DTL Basophils <0.03 0.01 - 0.08 x10(9)/L 02/06/2024 11:20 AM CDT DTL Blood (Blood, Venous) 02/06/2024 10:44 AM CDT 02/06/2024 11:08 AM CDT Eunice Ty M.D. LAB BLOOD ADD-ON [facility] [address] [place] [address], [facility] [address] [place] [address] [facility] [address] [place] [address] * CRP (C-Reactive Protein) (02/06/2024 10:44 AM CDT) C-Reactive Protein (CRP), S <3.0 <5.0 mg/L 02/06/2024 11:44 AM CDT DTL Blood (Blood, Venous) 02/06/2024 10:44 AM CDT 02/06/2024 11:24 AM CDT Eunice Ty M.D. LAB BLOOD ADD-ON [facility] [place] [address] [place], [place] [address] [address] [place] [address] * ALT (Alanine Aminotransferase) (02/06/2024 10:44 AM CDT) Alanine Aminotransferase (ALT), S 20 7 - 45 U/L 02/06/2024 11:44 AM CDT DTL Blood (Blood, Venous) 02/06/2024 10:44 AM CDT 02/06/2024 11:24 AM CDT Eunice Ty M.D. LAB BLOOD ADD-ON [facility] [address] [place] [address], [facility] [address] [place] [address] * AST (Aspartate Aminotransferase) (02/06/2024 10:44 AM CDT) Aspartate Aminotransferase (AST), S 23 8 - 43 U/L 02/06/2024 11:44 AM CDT DTL Blood (Blood, Venous) 02/06/2024 10:44 AM CDT 02/06/2024 11:24 AM CDT Eunice Ty M.D. LAB BLOOD ADD-ON [facility] [place] [address] [place] [address], [place] DTL [facility] [address] [place] [address] * Lipid Panel, NON-FASTING (07/30/2023) Pathologist [facility] EXT Cholesterol, Total, S 126 90 - 199 [facility] EXT Triglycerides, S 99 40 - 149 [facility] EXT Cholesterol, HDL, S 52 50 [facility] EXT Cholesterol, LDL 54 100 [facility] Blood (Blood, Venous) Eunice Ty M.D. LAB BLOOD ADD-ON Performing Organization Address City/[facility]/ZIP Co de Phone Number [facility] [address] [place] [address], [facility] [phone] * (ABNORMAL) Potassium (06/27/2020) [facility] EXT Potassium 3.2(A) 3.4 - 5.1 Blood (Blood, Venous) Narrative Resulting Agency Comment [facility] Asif Stoner M.D. LAB BLOOD ADD-ON * HIV-1/-2 Ag and Ab Screen, Plasma (12/19/2018 10:00 AM CDT) [facility] HIV-1/-2 Ag and Ab Screen, P Negative Negative 12/19/2018 2:12 PM CDT [facility] Comment: Negative result does not rule out HIV infection. If exposure to HIV infection occurred <14 days ago, contact the laboratory to request addition of HIV-1 RNA detection / quantification test (HIVQN). Blood (Blood, Venous) 12/19/2018 10:00 AM CDT 12/19/2018 1:28 PM CDT Sukumar Hamm M.D. LAB MICROBIOLOGY - B LOOD ORDERABLES [facility] [address] [place] [address] from Last 3 Months or Most Recently Relevant to Health Maintenance Care Teams Tele Rn Relationship Specialty Start Date End Date Elsewhere, Pcp PCP - General Family Medicine 03/14/18
--- OUTSIDE RECORDS SUMMARY | 2024-05-06 13:45 | XMS_ITS | Encounter Summary ---
Author Organization [facility] Address [address] [place] [address] Care Team Providers Care Mold Maker Plastic Molds Name Role Phone Elsewhere, Pcp Primary Care Provider Unavailabl e Reason for Visit * Reason Comments Med Refill Encounter Details Date Type Department Care Team (Late st Contact Info) Description 01/07/2024 Refill Division of Rheumatology in [place], [place] [address] [place] [phone] Eunice Ty M.D. [address] [place] [phone] Med Refill Social History Tobacco Use Types Packs/Day Years Used Date Smoking Tobacco: Never Smokeless Tobacco: Never Alcohol Use Standard Drinks/Week Comments Yes 1 (1 standard drink = 0.6 oz pur e alcohol) [facility] Utilities Answer Date Recorded In the past 12 months has [facility] [employer], [employer], oil, or water [employer] threatened to shut off services in your [...] week 01/30/2022 How often do you attend [facility] or gnosticist services? More than 4 times per year 01/30/2022 Do you belong to any clubs o r organizations such as jehovah's witness groups, unions, fraternal or athletic groups, or [...] care, and heating? Not very hard 01/30/2022 [facility] of Occupat ional Health - [...] your living situation today? I have a [facility] place to live 01/31/2024 Education Answer [...] encounter Miscellaneous Notes * Telephone Encounter - Liana Bradley R.N. - 01/10/2024 2:36 PM CDT Duplicate rx correct pharmacy verified. documented in this encounter Plan of Treatment Not on file documented as of this encounter Visit Diagnoses Diagnosis Dermatomyositis (HCC) documented in this encounter Care Teams Mold Maker Plastic Molds Relationship Specialty Start Date End Date Elsewhere, Pcp PCP - General Family Medicine 03/14/18 documented as of this encounter
--- OUTSIDE RECORDS SUMMARY | 2024-05-06 13:45 | XMS_ITS | Encounter Summary ---
Author Organization [facility] Address [address] [place] [address] Care Team Providers Care Weblogic Developer Name Role Phone Elsewhere, Pcp Primary Care Provider Unavailabl e Reason for Visit * Reason Comments Med Refill Encounter Details Date Type Department Care Team (Late st Contact Info) Description 01/29/2024 Refill Division of Rheumatology in [place], [place] [address] [place] [phone] Eunice Ty M.D. [address] [place] [address] Med Refill Social History Tobacco Use Types Packs/Day Years Used Date Smoking Tobacco: Never Smokeless Tobacco: Never Alcohol Use Standard Drinks/Week Comments Yes 1 (1 standard drink = 0.6 oz pur e alcohol) [facility] Utilities Answer Date Recorded In the past 12 months has [facility] [employer], [employer], oil, or water [employer] threatened to shut off services in your [...] week 01/30/2022 How often do you attend [facility] or sikh services? More than 4 times per year 01/30/2022 Do you belong to any clubs o r organizations such as roman catholic groups, unions, fraternal or athletic groups, or [...] care, and heating? Not very hard 01/30/2022 [facility] [place] of Occupat ional Health - Occupational Stress [...] your living situation today? I have a [facility] place to live 01/31/2024 Education Answer [...] encounter Miscellaneous Notes * Telephone Encounter - Keli Linares RRaisa - 02/04/2024 11:03 AM CDT Prescription renewal request for tofacitinib (Xeljanz) received from pharmacy. HISTORY OF PRESENT ILLNESS Last Rheum / VASC visit: 01/31/23 with Eunice Ty MD Future office visit: 02/06/24 Last monitoring labs: 11/24/23: results within parameters Prescription request matches current plan of care. Prescription request matches a current prescription in the Medication List. Exclusion criteria: None (If an alert appeared, it was determined to be an approved exception) ASSESSMENT/PLAN Prescription request renewed per nursing protocol. documented in this encounter Plan of Treatment Not on file documented as of this encounter Visit Diagnoses Diagnosis Dermatomyositis (HCC) documented in this encounter Care Teams Weblogic Developer Relationship Specialty Start Date End Date Elsewhere, Pcp PCP - General Family Medicine 03/14/18 documented as of this encounter
--- OUTSIDE RECORDS SUMMARY | 2024-05-06 13:45 | XMS_ITS | Encounter Summary ---
Author Organization [facility] Address [address] [place] [address] Care Team Providers Care Hebrew Teacher Name Role Phone Elsewhere, Pcp Primary Care Provider Unavailabl e Encounter Details Date Type Department Care Team (Late st Contact Info) Description 02/04/2024 Clinical Communication Division of Rheumatology in [place], [place] [address] [place] [phone] Eunice Ty M.D. [address] [place] [address] Social History Tobacco Use Types Packs/Day Years Used Date Smoking Tobacco: Never Smokeless Tobacco: Never Alcohol Use Standard Drinks/Week Comments Yes 1 (1 standard drink = 0.6 oz pur e alcohol) [facility] Utilities Answer Date Recorded In the past 12 months has [facility] [employer], gas, oil, or water [employer] threatened to shut off services in your [...] How often do you attend chur or yarsani services? More than 4 times per year 01/30/2022 Do you belong to any clubs o r organizations such as hindu groups, unions, fraternal or athletic groups, or [...] heating? Not very hard 01/30/2022 [facility] of Occupat ionfl Health - Occupational Stress Questionnaire Answer Date [...] living situation today? I have a [facility] place to live 01/31/2024 Education Answer [...] Notes * Telephone Encounter - Keli Linares R.N. - 02/04/2024 11:06 AM CDT Refilled in refill encounter 02/01/24. * Telephone Encounter - Jen Chandra - 02/04/2024 10:40 AM CDT Caller/Authorization: Provider: Eunice Ty MD Medication Question Med Name: Xeljanz Med Dose/frequency: 5 mg 2 times daily Preferred Pharmacy: [facility] [address] Side Effects: Follow-up requested: Yes Pharmacy called requesting refill. [phone] fax: [phone] Phone/Portal:Phone call documented in this encounter Plan of Treatment Not on file documented as of this encounter Visit Diagnoses Not on filedocumented in this encounter Care Teams Hebrew Teacher Relationship Specialty Start Date End Date Elsewhere, Pcp PCP - General Family Medicine 03/14/18 documented as of this encounter
--- OUTSIDE RECORDS SUMMARY | 2024-05-06 13:45 | XMS_ITS | Encounter Summary ---
Author Organization [facility] Address [address] [place] [address] Care Team Providers Care Personal Chef Name Role Phone Elsewhere, Pcp Primary Care Provider Unavailabl e Reason for Referral * Outpatient (Routine) - Authorized Specialty Diagnoses / Procedures Referred By Contac t Referred To Contact Rheumatology Eunice Ty M.D. [address] [place] [phone] [facility] Referral ID Status Reason Start Date Expiration Date V isits Requested Visits Authorized [id number] Authorized 02/06/2024 08/07/2025 1 1 * Outpatient (Routine) - Authorized Specialty Diagnoses / Procedures Referred By Contac t Referred To Contact Diagnoses Dermatomyositis (HCC) Procedures BI Breast Screening Bilateral with Tomosynthesis Eunice Ty M.D. [address] [place] [address] [facility] Referral ID Status Reason Start Date Expiration Date V isits Requested Visits Authorized [id number] Authorized 02/06/2024 02/05/2025 1 1 Reason for Visit * Outpatient (Routine) - Closed Specialty Diagnoses / Procedures Referred By Contac t Referred To Contact Rheumatology Eunice Ty M.D. [address] [place] [address] [facility] Referral ID Status Reason Start Date Expiration Date Visits Re quested Visits Authorized [id number] Closed 01/31/2023 01/30/2026 1 1 Encounter Details Date Type Department Care Team (Latest Contact Info) Description 02/06/2024 12:30 PM CDT Office Visit Division of Rheumatology in [place], [place] [address] [place] [phone] Eunice Ty M.D. [address] [place] [phone] Dermatomyositis (HCC) (Primary Dx) Social History Tobacco Use Types Packs/Day Years Used Date Smoking Tobacco: Never Smokeless Tobacco: Never Alcohol Use Standard Drinks/Week Comments Yes 1 (1 standard drink = 0.6 oz pur e alcohol) [facility] Estorianities Answer Date Recorded In the past 12 months has e [employer], gas, oil, or water [employer] threatened to shut off services in your [...] week 01/30/2022 How often do you attend up health system or episcopalian services? More than 4 times per year 01/30/2022 Do you belong to any clubs o r organizations such as christian groups, unions, fraternal or athletic groups, or [...] care, and heating? Not very hard 01/30/2022 [facility] of Occupat ional [facility] - Occupational Stress Questionnaire Answer Date Recorded [...] living situation today? I have a [facility] place to live 01/31/2024 Education Answer Date Recorded What is the highest level of school you have completed or the highest degree you have received? 12th grade 05/16/2019 Sex and Gender Information Value Date Recorded Sex Assigned at Female 01/19/2018 1:35 PM CDT Gender Identity Female 01/19/2018 1:35 PM CDT Sexual Orientation Straight 01/19/2018 1: 35 PM CDT documented as of this encounter Last Filed Vital Signs Vital Sign Reading [...] Mass Index 30.78 02/06/2024 12:06 PM CDT documented in this encounter Progress Notes * Eunice Ty M.D. - 02/06/2024 12:30 PM CDT Images from the original note were not included. CARLOZ: 01/31/2023 HISTORY OF PRESENT ILLNESS Mrs. 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 She presents today for her follow up. RHEUMATOLOGIC HISTORY In 2002 she developed a rash with biopsy showing dermatomyositis. Labs notable for JAVIER 1:32, negative BENJIE and myomarker panel. Her EMG in 2002 showed mild patchy myopathy without clinical correlate. Initially was on plaquenil for the rash however this worsened it and caused difficulty breathing. Methotrexate in 2002 caused her a sore throat. Doxycycline for 3 weeks helped with the rash. Azathioprine in 2008 was not effective.In 2008 stated on mycophenolate 1g twice a day with intermittent IVIG with last dose in 2017 (was costly). She got Rituximab induction in December-January 2019 without response. In 2018 her MMF was switched to Leflunomide and later to tofacitinib in February of 2020 with good response as well as prednisone 5 mg since 2019. During her visit in January of 2023, patient tapered off prednisone. INTERVAL HISTORY Insurance denied Xeljanz refill TODAY Doing really well since our last visit. Has not needed any prednisone. Has not had any skin rashes,muscle weakness, dysphagia, new onset Raynaud's, sicca symptoms, shortness of breath, infections, unintentional weight loss, new onset peripheral neuropathy. Has been getting cramping in her feet and calves for years that has been stable. She gets her yearly pap smears. Planned to see her PCP next month. Has some left foot pain related to walking at the arch. Tried insoles. Has tried different shoes. Has some arthritic pain from OA that is worse on her right hand and she thinks is related to overuse. Notes some distal toe blister that enlarged and popped. Has only happened once. Small bump is present bilaterally at the distal 2nd MTPs. Painless has been stable in size. She saw her cbx operator recently. Noted that she popped a blood vessel in her right eye. She was told that her vision has improved. She notes that her right eye hurts with extreme rapid movements. She denied diplopia, eye redness, or photophobia. REVIEW OF SYSTEMS Pertinent positives and negatives as documented in the above history of present illness. REVIEW OF SYSTEMS OBJECTIVE PHYSICAL EXAMINATION Vitals: 02/06/24 1206 BP: 143/87 Pulse: 81 Temp: 36.9 ??C General: Alert, oriented, appropriate affect, no apparent distress. Eyes: Clear conjunctivae and lids. ENT: Moist oral mucosa without mucositis. Lymph: No cervical or supraclavicular adenopathy. Skin: No rheumatologic rashes or ulcers. Skinped: No psoriatic plaques, nail pitting, periungual telangiectasia, alopecia, vasculitic or sclerodermatous skin rash. Vessels: No edema. Heart: Regular rate. No murmurs or rubs. Lungs: Clear to auscultation bilaterally. Abdomen: Nondistended. Spine: Cervical and lumbar range of motion is appropriate for age and habitus. Joints: No synovitis of the upper and lower extremities including hands, wrists, elbows, knees, ankles or feet bilaterally. Range of motion of the extremities including shoulders and hips are within functional limits bilaterally. Neuro: Bayron and heberden nodes. Appropriate gait for age. Proximal and distal strength in the upper and lower extremities is 5/5 including wrists and dorsiflexion and plantar flexion. Able to getup from supine position without assistance. RELEVANT DATA Labs: CBC without anemia Creatinine 1.01 ESR 2 CRP <3.0 ALT 20 AST 23 CK elevated at 204 from 186 Aldolase pending Quantitative M protein pending ASSESSMENT / PLAN #Amyopathic Dermatomyositis #Mildly elevated CK Mrs Montez presents today for her annual follow up. She has had a long course of active amyopathic dermatomyositis for over two decades refractory to multiple treatments including: methotrexate, azathioprine, Mycophenolate, Doxycyline IVIG, leflunomide, and even Rituximab. The only medicine that has been able to keep her in remission was the Xeljanz. She does have mildlyintermittent elevations of CK which will make her high risk for flares if her medication were to bediscontinued. Will be writing an appeal this year for approval of continuation of her Xeljanz medication. Will be obtaining another CK beginning of February locally. Gave her lab letter for this. #Osteoarthritis #L Foot pain Currently using voltaren gel twice a day with minimal improvement. Discussed use of paraffin wax which some people find helpful. She would like to defer referral to podiatry at this time. Discussed other alternative modes of exercise outside of walking including swimming, cycling. #Right eye pain Low suspicion for inflammatory eye disease given recent reported eye exam with improved vision and absence of eye redness, photophobia, diplopia, and persistent pains. She denied any concurrent headaches with this as well. I have asked her to reach out to her cbx operator to work this up further. #Distal small skin lesion on bilateral 2nd MTPs Suspect this is related to pressure. Patient reports that she can squish it flat. Asked her to monitor this and if it enlarges again then she will need further evaluation with dermatology. #Health Care Maintenance - Vaccinations: Discussed importance of PCV 20, Tdap, and RSV vaccination. Patient would like to defer - Yearly pap smears - Mammogram today given prior ones ordered in Rheumatology - DEXA in 2021 with normal bone density - Lab letter for Xeljanz monitoring given. Discussed importance of ongoing monitoring every 3 months This patient was staffed with Dr. Velazquez PATIENT EDUCATION Ready to learn, no apparent learning barriers were identified; learning preferences include listening. Explained diagnosis and treatment plan; patient expressed understanding of the content. documented in this encounter Plan of Treatment Scheduled Orders Name Type Priority Associated Diagnoses Order Schedule BI Breast Screening Bilateral with Tomosynthesis Imaging RAD - Routine (most inpatients and all outpatients) Dermatomyositis (HCC) Expected: 02/05/2025, Expires: 05/08/2025 CBC with Differential, Blood Lab Routine Dermatomyositis [...] Dermatomyositis (HCC) Expected: 02/05/2025 (Approximate), Expires: 05/08/2025 Scheduled Referrals Name Type Priority Associated Diagnoses Order Schedule Rheumatology office visit (clinic) Outpatient Referral Routine Expected: 02/05/2025, Expires: 05/08/2025 documented as of this encounter Visit Diagnoses Diagnosis Dermatomyositis (HCC)- Primary documented in this encounter Care Teams Personal Chef Relationship Specialty Start Date End Date Elsewhere, Pcp PCP - General Family Medicine 03/14/18 documented as of this encounter
--- OUTSIDE RECORDS SUMMARY | 2024-05-06 13:45 | XMS_ITS | Encounter Summary ---
Author Organization [facility] Address [address] [place] [address] Care Team Providers Care Primary School Teacher Name Role Phone Elsewhere, Pcp Primary Care Provider Unavailabl e Reason for Referral * Outpatient (Routine) - Closed Specialty Diagnoses / Procedures Referred By Link mckoy Referred To Contact Diagnoses Dermatomyositis (HCC) Procedures BI Breast Screening Bilateral with Tomosynthesis Eunice Ty M.D. [address] [place] [address] [facility] Referral ID Status Reason Start Date Expiration Date Visits Re quested Visits Authorized [id number] Closed 11/15/2023 11/14/2024 1 1 Reason for Visit * Outpatient (Routine) - Closed Specialty Diagnoses / Procedures Referred By Link mckoy Referred To Contact Diagnoses Dermatomyositis (HCC) Procedures BI Breast Screening Bilateral with Tomosynthesis Eunice Ty M.D. [address] [place] [address] [facility] Referral ID Status Reason Start Date Expiration Date Visits Re quested Visits Authorized [id number] Closed 11/15/2023 11/14/2024 1 1 Encounter Details Date Type Department Care Team (Latest Contact Info) Description 02/06/2024 12:45 PM CDT - 02/06/2024 11:59 PM CDT Hospital Encounter Department of Radiology in [place], [place] [address] [place] [phone] Eunice Ty M.D. [address] [place] [phone] Dermatomyositis (HCC) Discharge Disposition: Home or Self Care Social History Tobacco Use Types Packs/Day Years Used Date Smoking Tobacco: Never Smokeless Tobacco: Never Alcohol Use Standard Drinks/Week Comments Yes 1 (1 standard drink = 0.6 oz pur e alcohol) [facility] Utilities Answer Date Recorded In the past 12 months has e [employer], gas, oil, or water [employer] threatened to shut off services in your [...] often do you attend chur ch or tenriism services? More than 4 times per year 01/30/2022 Do you belong to any clubs o r organizations such as yazidism groups, unions, fraternal or athletic groups, or [...] care, and heating? Not very hard 01/30/2022 [facility] of Occupat ional Health - Occupational [...] your living situation today? [facility] 01/31/2024 Education Answer Date Recorded What is the highest level of school you have completed or the highest degree you have received? 12th grade 05/16/2019 Sex and Gender Information Value Date Recorded Sex Assigned at Female 01/19/2018 1:35 PM CDT Gender Identity Female 01/19/2018 1:35 PM CDT Sexual Orientation Straight 01/19/2018 1: 35 PM CDT documented as of this encounter Medications at Time of Discharge Medication Sig Dispensed Refills Start Date End Date amLODIPine (Norvasc) 5 mg tablet Take 5 mg by mouth daily. atorvastatin (LIPITOR) 20 mg tablet daily. 12/20/2020 estradioL (Vivelle-Dot) 0.05 mg/[address] 1 patch on the skin 2 (two) times a day. ibuprofen 800 mg tablet TAKE 1 TABLET BY MOUTH EVERY 8 HOURS WITH FOOD OR MILK NEEDED 01/14/2024 losartan-hydroCHLOROt hiazide (HYZAAR) 100-12.5 mg per tablet daily. 3 11/14/2018 Mounjaro 15 mg/0.5 mL pen injector injection See Instructions, ADMINISTER 15 MG UNDER THE SKIN EVERY WEEK. ROTATE INJECTION SITES., # 2 mL, 10 Refill(s), Pharmacy: [id number], will pick pack worker soon., ADMINISTER 15 MG UNDER THE SKIN EVERY WEEK. ROTATE INJECTION SITES., 164, cm, 02/06... 08/21/2023 norethindrone (AYGESTIN) 5 mg tablet TK 1 T PO D 3 03/19/2019 progesterone (Prometrium) 200 mg capsule Take 200 mg by mouth at bedtime. tofacitinib (Xeljanz) 5 mg tabletIndications:Kvng matomyositis (HCC) TAKE 1 TABLET BY MOUTH TWICE DAILY 180 tablet 02/04/2024 05/01/2024 documented as of this encounter Plan of Treatment Not on file documented as of this encounter Procedures Procedure Name Priority Date/Time Associated Diagnosis Comments BI BREAST SCREENING BILATERAL WITH TOMOSYNTHESIS RAD - Routine (most inpatients and all outpatients) 02/06/2024 1:21 PM CDT Dermatomyositis (HCC) documented in this encounter Results * BI Breast Screening Bilateral with Tomosynthesis [...] Screening Mammogram ASSESSMENT: BI-RADS: 1: Negative. Eunice NIELSEN BI PROCEDURES documented in this encounter Visit Diagnoses Diagnosis Dermatomyositis (HCC) documented in this encounter Care Teams Primary School Teacher Relationship Specialty Start Date End Date Elsewhere, Pcp PCP - General Family Medicine 03/14/18 documented as of this encounter
--- OUTSIDE RECORDS SUMMARY | 2024-05-06 13:45 | XMS_ITS | Encounter Summary ---
Author Organization [facility] Address [address] [place] [id number] Care Team Providers Care Tobacco Stemmer Machine Name Role Phone Elsewhere, Pcp Primary Care Provider Unavailabl e Reason for Visit * Reason Onset Date Comments Rx Denial 02/03/2024 Xeljanz Encounter Details Date Type Department Care Team (Latest Contact Info) Description 02/03/2024 Clinical Communication Division of Rheumatology in [place], [place] [address] [place] [phone] Eunice Ty M.D. [address] [place] [phone] Rx Denial (Xeljanz) Social History Tobacco Use Types Packs/Day Years Used Date Smoking Tobacco: Never Smokeless Tobacco: Never Alcohol Use Standard Drinks/Week Comments Yes 1 (1 standard drink = 0.6 oz pur e alcohol) [facility] Utilities Answer Date Recorded In the past 12 months has [employer], oil, or water [employer] threatened to shut off services in your [...] How often do you attend chur or mandaen services? More than 4 times per year [...] care, and heating? Not very hard 01/30/2022 [facility] of Occupat ional Health - Occupational Stress [...] your living situation today? I have a [facility] place to live 01/31/2024 Education Answer [...] encounter Miscellaneous Notes * Telephone Encounter - Hamida Reyes - 02/03/2024 9:15 AM CDT Images from the original note were not included. documented in this encounter Plan of Treatment Not on file documented as of this encounter Visit Diagnoses Not on filedocumented in this encounter Care Teams Tobacco Stemmer Machine Relationship Specialty Start Date End Date Elsewhere, Pcp PCP - General Family Medicine 03/14/18 documented as of this encounter
--- OUTSIDE RECORDS SUMMARY | 2024-05-06 13:45 | XMS_ITS | Encounter Summary ---
Author Organization [facility] Address [address] [place] [address] Care Team Providers Care Drama Professor Name Role Phone Elsewhere, Pcp Primary Care Provider Unavailabl e Encounter Details Date Type Department Care Team (Latest Contact Info) Description 02/06/2024 10:25 AM CDT - 02/06/2024 12:44 PM CDT Hospital Encounter Department of Laboratory Medicine and Pathology, [facility] in [place], [place] [address] [place] [address] Eunice Ty M.D. [address] [place] [address] Sore Throat; Dermatomyositis (HCC) Discharge Disposition: Home or Self Care Social History Tobacco Use Types Packs/Day Years Used Date Smoking Tobacco: Never Smokeless Tobacco: Never Alcohol Use Standard Drinks/Week Comments Yes 1 (1 standard drink = 0.6 oz pur e alcohol) [facility] Utilities Answer Date Recorded In the past 12 months has [facility], gas, oil, or water [employer] threatened to shut off services in your [...] How often do you attend chur or pentecostal services? More than 4 times per year 01/30/2022 Do you belong to any clubs o r organizations such as buddhism groups, unions, fra[employer] or athletic groups, or school groups? No [...] care, and heating? Not very hard 01/30/2022 [facility] of Occupat ional Health - Occupational Stress [...] your living situation today? I have a [facility] place to live 01/31/2024 Education Answer [...] SITES., # 2 mL, 10 Refill(s), Pharmacy: [id number], will parts picker soon., ADMINISTER 15 MG UNDER THE [...] Procedure Name Priority Date/Time Associated Diagnosis Comments QUANTITATIVE M-PROTEIN STUDY, S Routine 02/06/2024 10:44 AM CDT ALDOLASE, S Routine 02/06/2024 10:44 AM CDT Dermatomyositis (HCC) SEDIMENTATION RATE, B Routine 02/06/2024 10:44 AM CDT Dermatomyositis (HCC) CBC WITH DIFFERENTIAL, B Routine 024 10:44 AM CDT Dermatomyositis (HCC) C-REACTIVE PROTEIN (CRP), S/P Routine 02/06/2024 10:44 AM CDT Dermatomyositis (HCC) ALANINE AMINOTRANSFERASE (ALT), S/P Routine 02/06/2024 10:44 AM CDT Dermatomyositis (HCC) ASPARTATE AMINOTRANSFERASE (AST), S/P Routine 02/06/2024 10:44 AM CDT Dermatomyositis (HCC) CREATININE WITH EGFR, S/P Routine 02/06/2024 10:44 AM CDT Dermatomyositis (HCC) CREATINE KINASE (CK), S Routine 02/06/20 24 10:44 AM CDT Dermatomyositis (HCC) documented in this encounter Results * Quantitative M-protein Study (02/06/2024 10:44 AM [...] its performance characteristics determined by [facility] in a manner consistent with CLIA requirements. This test has not been cleared or approved by the U.S. Food and Drug Administration. Blood 02/06/2024 10:4 4 AM CDT 02/06/2024 2:55 PM CDT Narrative [facility] - 02/10/2024 8:18 AM CDT Specimen Information: Specimen ID: [id number] Specimen Type: Blood Specimen Collection Start Date: 02/06/2024 10:44 AM Specimen Received Date: 02/06/2024 ??2:55 PM Specimen ID: [id number] Specimen Type: Blood Specimen Collection Start Date: 02/06/2024 10:44 AM Specimen Received Date: 02/06/2024 ??3:02 PM Eunice Ty M.D. LAB BLOOD ADD-ON [facility] [address] [place] [address] [facility] [address] [place] [address] [facility] [address] [place] [address] [place] [address] * Aldolase (02/06/2024 10:44 AM CDT) Aldolase, S 3.7 <7.7 U/L 02/06/2024 12:42 PM CDT DTL Blood (Blood, Venous) 02/06/2024 10:44 AM CDT 02/06/2024 12:11 PM CDT Eunice Ty M.D. LAB BLOOD NON ADD-ON Performing Organization Address City/[facility]/ZIP Co de Phone Number [facility] [address] [place], [place] [phone] [place] [address] [address] [place] [address] * Creatinine with Estimated GFR (02/06/2024 10:44 AM CDT) Creatinine 1.01 0.59 - 1.04 mg/dL 02/06/2024 11:44 AM CDT DTL Estimated GFR (eGFR) 65 >=60 mL/min/BSA 02/06/2024 11:44 AM CDT DTL Comment: Estimated GFR calculated using the 2020 CKD_EPI creatinine equation. Blood (Blood, Venous) 02/06/2024 10:44 AM CDT 02/06/2024 11:24 AM CDT Eunice Ty M.D. LAB BLOOD ADD-ON [facility] [address] [place] [address], [facility] [address] [place] [address] * (ABNORMAL) CK (Creatine Kinase) (02/06/2024 10:44 AM CDT) Creatine Kinase (CK), S 204(H) 26 - 192 U/L 02/06/2024 11:44 AM CDT DTL Blood (Blood, Venous) 02/06/2024 10:44 AM CDT 02/06/2024 11:24 AM CDT Eunice Ty M.D. LAB BLOOD ADD-ON [facility] [address] [place] [address], [facility] [address] [place] [address] * CRP (C-Reactive Protein) (02/06/2024 10:44 AM CDT) C-Reactive Protein (CRP), S <3.0 <5.0 mg/L 02/06/2024 11:44 AM CDT DTL Blood (Blood, Venous) 02/06/2024 10:44 AM CDT 02/06/2024 11:24 AM CDT Eunice Ty M.D. LAB BLOOD ADD-ON Performing Organization Address City/[facility]/ZIP Co de Phone Number [facility] [address] [place], [place] [address] [address] [place] [address] * Sedimentation Rate (02/06/2024 10:44 AM CDT) Sedimentation Rate, B 2 2 - 22 mm/h 02/06/2024 12:08 PM CDT DTL Blood (Blood, Venous) 02/06/2024 10:44 AM CDT 02/06/2024 11:08 AM CDT Eunice Ty M.D. LAB BLOOD ADD-ON [facility] [address] [place] [address], [facility] [address] [place] [address] * CBC with Differential, Blood (02/06/2024 10:44 AM CDT) [facility] Hemoglobin 13.9 11.6 - 15.0 g/dL 02/06/2024 [...] - 6.45 x10(9)/L 02/06/2024 11:20 AM CDT DHPM Lymphocytes 0.98 0.95 - 3.07 x10(9)/L 02/06/2024 11:20 AM CDT DTL Monocytes 0.33 0.26 - 0.81 x10(9)/L 02/06/2024 11:20 AM CDT DTL Eosinophils 0.05 0.03 - 0.48 x10(9)/L 02/06/2024 11:20 AM CDT DTL Basophils <0.03 0.01 - 0.08 x10(9)/L 02/06/2024 11:20 AM CDT DTL Blood (Blood, Venous) 02/06/2024 10:44 AM CDT 02/06/2024 11:08 AM CDT Eunice Ty M.D. LAB BLOOD ADD-ON [facility] [address] [place] [address], [facility] DTL [facility] [address] [place] [address] DHPM [facility] [address] [place] [address] * AST (Aspartate Aminotransferase) (02/06/2024 10:44 AM CDT) Aspartate Aminotransferase (AST), S 23 8 - 43 U/L 02/06/2024 11:44 AM CDT DTL Blood (Blood, Venous) 02/06/2024 10:44 AM CDT 02/06/2024 11:24 AM CDT Eunice Ty M.D. LAB BLOOD ADD-ON Performing Organization Address City/[facility]/ZIP Co de Phone Number [facility] [address] [place] [address], [address] [address] * ALT (Alanine Aminotransferase) (02/06/2024 10:44 AM CDT) Alanine Aminotransferase (ALT), S 20 7 - 45 U/L 02/06/2024 11:44 AM CDT DTL Blood (Blood, Venous) 02/06/2024 10:44 AM CDT 02/06/2024 11:24 AM CDT Eunice Ty M.D. LAB BLOOD ADD-ON [facility] [address] [place] [address], [address] [address] documented in this encounter Visit Diagnoses Diagnosis Sore Throat Dermatomyositis (HCC) documented in this encounter Care Teams Drama Professor Relationship Specialty Start Date End Date Elsewhere, Pcp PCP - General Family Medicine 03/14/18 documented as of this encounter
--- OUTSIDE RECORDS SUMMARY | 2024-05-06 13:45 | XMS_ITS | Encounter Summary ---
Author Organization [facility] Address [address] [place] [address] Care Team Providers Care Pharmaceutical Service Representative Name Role Phone Elsewhere, Pcp Primary Care Provider Unavailabl e Encounter Details Date Type Department Care Team (Late st Contact Info) Description 01/30/2024 Orders Only Division of Rheumatology in [place], [place] [address] [place] [id number] Anthony Nichols M.D. Social History Tobacco Use Types Packs/Day Years Used Date Smoking Tobacco: Never Smokeless Tobacco: Never Alcohol Use Standard Drinks/Week Comments Yes 1 (1 standard drink = 0.6 oz pur e alcohol) [facility] Utilities Answer Date Recorded In the past 12 months has e [place], gas, oil, or water [employer] threatened to shut off services in your [...] often do you attend chur ch or sabianist services? More than 4 times per year 01/30/2022 Do you belong to any clubs o r organizations such as christianity groups, unions, fraternal or athletic groups, or [...] care, and heating? Not very hard 01/30/2022 [facility] - Occupational Stress [...] your living situation today? I have a [facility] place to live 01/31/2024 Education [...] on filedocumented in this encounter Care Teams Pharmaceutical Service Representative Relationship Specialty Start Date End Date Elsewhere, Pcp PCP - General Family Medicine 03/14/18 documented as of this encounter
[2024-05-06 13:58] LABS: Basophils Absolute Auto 0.01 K/uL (0.00-0.30); Basophils Percent Auto 0.2 % (0.0-3.0); Eosinophils Absolute Auto 0.06 K/uL (0.00-0.50); Eosinophils Percent Auto 1.1 % (0.0-7.0); Hematocrit 41.3 % (33.0-51.0); Hemoglobin* 13.4 gm/dL (12.0-16.0); Immature Granulocytes Abs Auto 0.01 K/uL (0.00-0.30); Immature Granulocytes Pct Auto 0.2 %; Lymphocytes Percent Auto 14.4 % (20-44); Mean Corpuscular HGB Conc 32 gm/dL (32-36); Mean Corpuscular Hemoglobin 29 pg (26-34); Mean Corpuscular Volume 88 fL (80-100); Monocytes Percent Auto 6.3 % (0.0-11.0); Neutrophils Percent Auto 77.8 % (42.0-72.0); Platelet Count* 196 K/uL (140-440); RDW Coefficient of Variation % 14.4 % (11.5-15.5); Red Blood Count 4.67 m/uL (4.00-5.20); White Blood Count* 5.28 K/uL (4.50-11.00)
[2024-05-06 14:00] LABS: Slide Review Reflex No
[2024-05-06 14:12] LABS: Aspartate Amino Transferase* 27 U/L (12-35)
[2024-05-06 14:13] LABS: Alanine Aminotransferase* 18 U/L (4-35)
== END 2024-05-06 13:40 | disposition home or self-care (01) ==
LOC: NPINS 13:39
PROVIDERS: Visit Provider Internal Medicine Rheumatology
DX: M33.13 Other dermatomyositis without myopathy (principal)
CPT/HCPCS: 84450; 84460; 85025